=== PATIENT | male | born 2000 | race Caucasian/White ===

== ENCOUNTER 2024-05-01 20:43 | Emergency (ER) | payer SELFPAY ==
[2024-05-01] MEDS: Lidocaine 2% Viscous Solution 15 ML UD PO ONE (21:38)
== END 2024-05-01 22:25 | disposition home or self-care (01) ==
LOC: FB.ED 20:43
DX: T25.221A Burn of second degree of right foot, initial encounter (principal); X12.XXXA Contact with other hot fluids, initial encounter; Y93.89 Activity, other specified
CPT/HCPCS: 99283; A9270-GY